=== PATIENT | male | born 1990 | race Two or more races ===

== ENCOUNTER 2024-06-16 23:24 | Emergency (ER) | payer OTHER ==
[~2024-06-16] VITALS: Ht 195.6 cm; Wt 104.3 kg
[2024-06-16 23:47] VITALS: BP 125/79; O2SAT 96
[2024-06-17] MEDS ORDERED: CEFTRIAXONE SODIUM 1,000 MG VIAL IM STA (02:37)
[2024-06-17] MEDS ORDERED: NEOMYCIN/POLYMYXIN B/HYDROCORT 20 DR/ML BOTTLE OT STA (02:38)
[2024-06-17] MEDS ORDERED: KETOROLAC TROMETHAMINE 60 MG VIAL IM STA (02:38)
[2024-06-17] MEDS ORDERED: AMOX-CLAV 875-1 EACH PO (02:49)
[2024-06-17] MEDS ORDERED: KETO10TA2 PO (02:49)
[2024-06-17] MEDS ORDERED: CORTISPORIN EAR10 M1 OPHT (02:50)
== END 2024-06-17 04:01 ==
LOC: ER 23:26
DX: H60.8X2 Other otitis externa, left ear (principal); H92.02 Otalgia, left ear